=== PATIENT | male | born 1940 | race Caucasian/White ===

== ENCOUNTER 2019-10-28 10:19 | Observation (INO) ==
[2019-10-28 10:57] LABS: Basophils # 0.1 K/mm3 (0-0.2); Basophils % 0.6 % (0.1-2.0); Eosinophils # 0.2 K/mm3 (0.0-0.4); Eosinophils % 1.4 % (0.1-12.0); Hematocrit 43.9 % (42.0-52.0); Hemoglobin 14.4 g/dL (14.1-18.0); Lymphocytes # 2.3 K/mm3 (0.7-4.5); Lymphocytes % 21.5 % (10-50); Mean Corpuscular HGB Conc 32.8 g/dL (31.8-35.4); Mean Platelet Volume 7.6 fl (7.4-10.4); Monocytes % 9.9 % (1.7-9.3); Neutrophils % 66.5 % (37.0-80.0); Platelet Count 304 K/mm3 (142-424); Red Blood Count 4.99 M/mm3 (4.60-6.20); Red Cell Distribution Width 13.3 % (11.5-17.5); White Blood Count 10.5 K/mm3 (4.8-10.8)
[2019-10-28 11:05] LABS: Albumin Level 3.8 gm/dL (3.4-5.0); Anion Gap 14.5 mEq/L (5-15); Bilirubin,Total 0.8 mg/dL (0.2-1.0); Calcium 9.2 mg/dL (8.5-10.1); Globulin 3.8 gm/dl (1.3-3.2); Total Protein,Serum 7.6 gm/dL (6.4-8.2)
--- NOTE | 2019-10-28 11:19 | Emergency Department Note ---
ED Disposition Clinical Impression: Renal calculi, Obstructive uropathy, Ureteral stone with hydronephrosis Disposition: Admitted as Observation Condition on Discharge: Fair Time of Disposition: 19:00 - Critical Care Critical Care Time: No Attestation: On 10/28/19, the high probability of a clinically significant, sudden or life threatening deterioration of the following system(s) required my full and direct attention, intervention and personal management. The time I documented below is in addition to time spent performing reported procedures but includes the following listed in this critical care notation. Medical Decision Making - Raman Inquiry Pt receiving controlled substance: No Vital Signs: 10/28/19 10:20 10/28/19 11:20 10/28/19 14:18 Temperature 98 F 97.9 F 98.1 F Temperature Source Oral Oral Pulse Rate 70 Pulse Rate [Right] 79 72 Respiratory Rate 18 18 20 Blood Pressure 114/78 Blood Pressure [Right Arm] 133/79 112/75 Blood Pressure Mean [Right Arm] 97 87 Blood Pressure Source [Right Arm] Automatic Cuff Blood Pressure Position [Right Arm] Sitting 02 Sat by Pulse Oximetry 96 96 Oxygen Delivery Method Room Air 10/28/19 14:37 Temperature 98.0 F Temperature Source Oral Pulse Rate Pulse Rate [Right] 60 Respiratory Rate 18 Blood Pressure Blood Pressure [Right Arm] 120/78 Blood Pressure Mean [Right Arm] 92 Blood Pressure Source [Right Arm] Automatic Cuff Blood Pressure Position [Right Arm] Sitting 02 Sat by Pulse Oximetry 90 L Oxygen Delivery Method Room Air - Lab Data Lab results reviewed: Yes: I reviewed the patient's lab results. Lab Results 10/28/19 10:53: WBC 10.5, RBC 4.99, Hgb 14.4, Hct 43.9, MCV 88.0, MCH 28.9, MCHC 32.8, RDW 13.3, Plt Count 304, MPV 7.6, Neut % (Auto) 66.5, Lymph % (Auto) 21.5, [place] % (Auto) 9.9 H, Eos % (Auto) 1.4, Baso % (Auto) 0.6, Neut # (Auto) 7.0, Lymph # (Auto) 2.3, [place] # (Auto) 1.0, Eos # (Auto) 0.2, Baso # (Auto) 0.1 10/28/19 10:53: Sodium 143, Potassium 4.5, Chloride 104, Carbon Dioxide 29, Anion Gap 14.5, BUN 22 H, Creatinine 1.57 H, Estimated Creat Clear 51, Estimated GFR 43 L, Est GFR ( Amer) 52 L, Glucose 100, Calcium 9.2, Total Bilirubin 0.8, AST 22, ALT 24, Alkaline Phosphatase 97, Total Protein 7.6, Albumin 3.8, Globulin 3.8 H, Albumin/Globulin Ratio 1.0 L, Amylase 57 10/28/19 10:53: Lipase 128 10/28/19 10:53: Troponin I < 0.02 10/28/19 13:00: Urine Color Yellow, Urine Appearance Clear, Urine pH 7.0, Ur Specific [place] 1.015, Urine Protein Negative, Urine Glucose (UA) Negative, Urine Ketones Negative, Urine Blood 3+, Urine Nitrate Negative, Urine Bilirubin Negative, Urine Urobilinogen 0.2, Ur Leukocyte Esterase Trace, Urine RBC 10-20, Urine WBC 5-10, Ur Squamous Epith Cells 5-10, Urine Bacteria None Result diagrams: 10/29/19 05:35 10/29/19 05:35 Orders (Tests/Meds): ED MEDICATIONS Discontinued Medications Generic Name Dose Route Start Last Admin Trade Name Freq PRN Reason Stop Dose Admin Acetaminophen 650 mg 10/28/19 15:00 Acetaminophen 325mg Tab PO 11/27/19 14:59 Q4HP PRN As Needed for Fever or Pain Hydrocodone Bitart/Acetaminophen 1 - 2 tab 10/28/19 15:00 Cascade 5/325mg Tablet PO 11/27/19 14:59 Q4HP PRN Mild to Moderate Pain Aspirin 81 mg 10/29/19 09:00 Aspirin 81mg Enteric Coated Tablet PO 11/28/19 08:59 DAILY SHANTANU Atorvastatin Calcium 20 mg 10/28/19 21:00 10/28/19 20:14 Lipitor 20mg Tablet PO 11/27/19 20:59 20 mg HS SHANTANU Administration Atorvastatin Calcium 40 mg 10/29/19 21:00 Lipitor 40mg Tablet PO 11/28/19 20:59 HS SHANTANU Hydromorphone HCl 2 mg 10/28/19 12:43 10/28/19 12:53 Dilaudid 4mg/Ml Syringe IV 10/28/19 12:44 2 mg ONCE ONE Administration Hydromorphone HCl 1 mg 10/29/19 08:00 Dilaudid 2mg/Ml Syringe IV 11/28/19 07:59 Q3H PRN Breakthru Severe Pain Hydromorphone HCl 0.5 mg 10/29/19 10:23 Dilaudid 2mg/Ml Syringe IV 10/29/19 12:23 Q5MINP PRN Moderate to Severe Pain Sodium Chloride 1,000 mls @ 999 mls/hr 10/28/19 11:00 10/28/19 10:57 Sod Chlor 0.9% 1000ml Bag IV 10/28/19 12:00 999 mls/hr .Q1H1M SHANTANU Administration Lactated Ringer's 1,000 mls @ 75 mls/hr 10/29/19 08:30 Lactated Ringer's 1000 Ml Bag IV 11/28/19 08:29 .[id number] SHANTANU Cefazolin Sodium 2 gm/ Sodium 100 mls @ 200 mls/hr 10/29/19 09:50 10/29/19 10:02 Chloride IV 10/29/19 10:19 200 mls/hr PREOP ONE Administration Sodium Chloride 3,000 mls @ 999 mls/hr 10/29/19 10:10 10/29/19 10:10 Sodium Chloride 0.9% Irrigation 3,000ml Bag IR 10/29/19 13:10 999 mls/hr ONCE ONE Administration Ioversol 75 ml 10/28/19 12:00 10/28/19 12:01 Rad-Optiray 350 100ml Vial IV 10/28/19 12:01 75 ml ONCE ONE Administration Protocol Ketorolac Tromethamine 15 mg 10/28/19 12:43 10/28/19 12:53 Toradol 60mg/2ml Vial IV 10/28/19 12:44 15 mg ONCE ONE Administration Lidocaine HCl 10 ml 10/29/19 10:15 10/29/19 10:06 Urojet Lidocaine 2% 10ml UR 10/29/19 10:16 10 ml ONCE ONE Administration Meperidine HCl 12.5 mg 10/29/19 10:23 Meperidine 25mg/Ml 1ml Syringe IV 10/29/19 12:23 Q5MINP PRN Shivering Meperidine HCl 25 mg 10/29/19 10:23 Meperidine 25mg/Ml 1ml Syringe IV 10/29/19 12:23 Q5MINP PRN Shivering Morphine Sulfate 2 mg 10/29/19 10:23 Morphine 2mg/Ml Syringe IV 10/29/19 12:23 Q5MINP PRN Severe Pain Ondansetron HCl 4 mg 10/28/19 12:52 10/28/19 12:52 Zofran 4mg/2ml Vial IV 10/28/19 12:53 4 mg ONCE ONE Administration Ondansetron HCl 4 mg 10/29/19 10:23 Zofran 4mg/2ml Vial IV 10/29/19 12:23 Q6HP PRN Nausea Promethazine HCl 6.25 mg 10/29/19 10:23 Phenergan 25mg/Ml 1ml Vial IV 10/29/19 12:23 [id number] PRN Nausea And Vomiting Sodium Chloride 10 ml 10/28/19 12:00 10/28/19 12:01 Rad-Saline Flush 10ml Syringe IV 10/28/19 12:01 10 ml ONCE ONE Administration Sodium Chloride 10 ml 10/29/19 07:45 Saline Flush 10ml Syringe IV 11/28/19 07:44 NEEDED PRN Maintain IV Site Sodium Chloride 25 ml 10/29/19 10:23 Sod Chlor 0.9% 25ml Bag IV 10/29/19 12:23 NEEDED PRN for Use with IV Promethazine Tamsulosin HCl 0.4 mg 10/28/19 21:00 Flomax 0.4mg Capsule PO 11/27/19 20:59 HS SHANTANU Tamsulosin HCl 0.4 mg 10/28/19 13:07 10/28/19 13:07 Flomax 0.4mg Capsule PO 10/28/19 13:08 0.4 mg HS ONE Administration Tamsulosin HCl 0.4 mg 10/28/19 21:00 10/29/19 09:15 Flomax 0.4mg Capsule PO 11/27/19 20:59 0.4 mg BID SHANTANU Administration Tramadol HCl 50 mg 10/28/19 15:00 10/29/19 16:21 Ultram 50mg Tablet PO 11/27/19 14:59 Not Given Q6H SHANTANU ORDERS Category Date Time Status CT abdomen pelvis w con Stat Cat Scan 10/28/19 10:40 Taken ECG Request by /Nse Stat Y 10/28/19 11:20 Stop Req - Physician Consults Physician Consulted: Dr. Maier Reason -: Pt condition Comment/Response: Discussed with Dr. Maier, the urologist regarding the patient and plan to get the patient admitted under the hospitalist service for cystoscopy and further removal of the renal stone. Additional Consult: Dr. Capone Reason -: Admission Comment/Response: Discussed with Dr. Capone regarding the patient and plan to get the patient admitted under his service for ureteric stone with hydronep hrosis and obstructive uropathy for cystoscopy and stone removal. - Reevaluation(s) Reevaluation #1: Patient has been feeling better after the pain medications. She states she still feels the pain when she moves. I discussed the lab values and the CT scan finding with the patient. Considering the size of the stone patient may have to admitted for cystoscopy and removal of the kidney stone. Plan to discuss the case with the urologist for further management modalities. Abdominal Pain HPI - General Chief Complaint: Abdominal Pain Stated Complaint: Abd Pain Time Seen by Provider: 10/28/19 10:57 Mode of Arrival: Ambulatory Source of Information: Patient Limitations: No Limitations Description of Symptoms (Recalled from ER Triage Doc. by RN): Pt c/o left sided abd pain since yesterday, pt had one episode of vomiting, denies diarrhea or fever. - History of Present Illness MD complaint: abdominal pain, flank pain Onset (ago): day(s) (1) Consistency: intermittent Location: LUQ, LLQ Severity: moderate Severity scale (1-10): 6 Quality: cramping, sharp Radiation: LLQ Migration to: no migration Relieving factors: nothing Exacerbating factors: nothing Associated symptoms: nausea, vomiting (Had vomited once) - Related Data Home Medications Medication Instructions Recorded Confirmed Aspirin [Low Dose Aspirin EC] 81 mg PO DAILY 10/28/19 10/28/19 Atorvastatin Calcium [Atorvastatin 20 mg PO HS 10/28/19 10/28/19 20mg Tab] Allergies Allergy/AdvReac Type Severity Reaction Status Date / Time No Known Allergies Allergy Verified 10/28/19 10:39 [facility] History - Hepatitis A Screen Drug use history?: No High risk sexual behaviors?: No History of sexually transmitted infection?: No Currently employed?: No Childcare worker?: No Do you have indoor plumbing?: Yes Do you have electricity?: Yes Attestation statement:: This patient has been screened for Hepatitis A risk factors. I have reviewed the patient's past medical history: Yes Laterality Cases: Right: Total Knee Replacement - Social History Alcohol Intake: never Occupational Status: retired ROS Obtained: Yes All systems reviewed & no additional complaints Physical Exam - General General appearance: alert, in no apparent distress - Head Head exam: atraumatic, normocephalic, normal inspection - Eye Eye exam: Present: normal appearance, PERRL, EOMI - ENT ENT exam: Present: normal exam, normal oropharynx, mucous membranes moist, TM's normal bilaterally, normal external ear exam - Neck Neck exam: Present: normal inspection, full ROM, trachea midline - Chest Chest inspection: Present: normal inspection, symmetric chest wall rise. Absent: tenderness - Respiratory Respiratory exam: Present: normal lung sounds bilaterally. Absent: respiratory distress - Cardiovascular Cardiovascular exam: Present: regular rate, normal rhythm. Absent: JVD - Abdominal Exam Abdominal exam: Present: soft, tenderness (Mild discomfort and tenderness on the left flank and the left lower quadrant area.), normal bowel sounds. Absent: distention, guarding - Extremities Exam Extremities exam: Present: normal inspection, full ROM, normal capillary refill - Back Exam Back exam: Present: normal inspection. Absent: tenderness - Neurological Exam Neurological exam: Present: alert, oriented X3, CN II-XII intact, normal gait - Psychiatric Psychiatric exam: Present: normal affect, normal mood - Skin Skin exam: Present: warm, dry, intact, normal color
[2019-10-28 13:06] LABS: Microscopic, Urine URINE MICROSCOPIC (MICROSCOPIC)
[2019-10-28 13:08] LABS: Appearance,Urine CLEAR (Clear); Bilirubin,Urine Negative (Negative); Blood, Urine 3+ (Negative); Color,Urine YELLOW (Yellow); Glucose,Urine (UA) Negative (Negative); Ketones,Urine Negative (Negative); Leukocyte Esterase,Urine TRACE (Negative); Protein,Urine Negative (Negative); Specific Gravity, Urine 1.015 (1.005-1.030); Urobilinogen,Urine 0.2 EU/dl (0.2)
--- NOTE | 2019-10-28 19:59 | History & Physical Report ---
*Admission Date: 10/28/19 *Chief complaint: Left flank pain *History of present illness: 79-year-old white male with significant history of nephrolithiasis, who presented to the emergency department with left flank pain and decreased voiding. Denied gross hematuria. Workup in the ER revealed 8 mm obstructing stone. Admitted to hospital for IV fluids, hydration and pain control and urology consultation. Patient has had a history of cardiac disease but by his own admission has not gone to doctors very often and does not take recommended medication. Excellent functional status at home with all activities of daily living performed by himself. [facility] History I have reviewed the patient's past medical history: Yes Medical History: Reports:: Coronary Artery Disease (stents and [place] over 5 years ago) Denies:: Cancer, Diabetes Mellitus Type 1, Diabetes Mellitus Type 2, Internal Pacemaker, MRSA *Have you ever received a pneumonia vaccine?: No *Have you received a flu vaccine this season?: Yes Laterality Cases: Right: Total Knee Replacement Other Surgeries: No: Pacemaker Amputation: No Fractures: No - *Social History Educational Level: Attended Grade School Smoking Status: Never smoker Alcohol Intake: never *Occupational Status:: retired Housing: apartment Household Members: spouse *Travel in the last 8 weeks: None Family Hx:: Coronary Artery Disease Review of Systems - Review of Systems Review of systems:: pertinent systems reviewed and negative unless documented below Meds Home Medications Medication Instructions Recorded Confirmed Type Aspirin [Low Dose Aspirin EC] 81 mg PO DAILY 10/28/19 10/28/19 History Atorvastatin Calcium [Atorvastatin 20 mg PO HS 10/28/19 10/28/19 History 20mg Tab] Allergies Allergy/AdvReac Type Severity Reaction Status Date / Time No Known Allergies Allergy Verified 10/28/19 10:39 Exam Vital signs and Labs for Last 24 Hours: Temp Pulse Resp BP Pulse Ox 97.5 F L 65 18 140/83 92 L 10/28/19 16:00 10/28/19 16:00 10/28/19 16:00 10/28/19 16:00 10/28/19 16:00 Laboratory Results - last 24 hr 10/28/19 10:53: WBC 10.5, RBC 4.99, Hgb 14.4, Hct 43.9, MCV 88.0, MCH 28.9, MCHC 32.8, RDW 13.3, Plt Count 304, MPV 7.6, Neut % (Auto) 66.5, Lymph % (Auto) 21.5, [place] % (Auto) 9.9 H, Eos % (Auto) 1.4, Baso % (Auto) 0.6, Neut # (Auto) 7.0, Lymph # (Auto) 2.3, [place] # (Auto) 1.0, Eos # (Auto) 0.2, Baso # (Auto) 0.1 10/28/19 10:53: Sodium 143, Potassium 4.5, Chloride 104, Carbon Dioxide 29, Anion Gap 14.5, BUN 22 H, Creatinine 1.57 H, Estimated Creat Clear 51, Estimated GFR 43 L, Est GFR ( Amer) 52 L, Glucose 100, Calcium 9.2, Total Bilirubin 0.8, AST 22, ALT 24, Alkaline Phosphatase 97, Total Protein 7.6, Albumin 3.8, Globulin 3.8 H, Albumin/Globulin Ratio 1.0 L, Amylase 57 10/28/19 10:53: Lipase 128 10/28/19 10:53: Troponin I < 0.02 10/28/19 13:00: Urine Color Yellow, Urine Appearance Clear, Urine pH 7.0, Ur Specific [place] 1.015, Urine Protein Negative, Urine Glucose (UA) Negative, Urine Ketones Negative, Urine Blood 3+, Urine Nitrate Negative, Urine Bilirubin Negative, Urine Urobilinogen 0.2, Ur Leukocyte Esterase Trace, Urine RBC 10-20, Urine WBC 5-10, Ur Squamous Epith Cells 5-10, Urine Bacteria None 10/28/19 16:08: POC Glucose 106 I & O for Last 24 hours: Intake & Output 10/26/19 10/27/19 10/28/19 10/29/19 11:59 11:59 11:59 11:59 Intake Total 1240 / 1240 Output Total 940 / 940 Balance 300 / 300 Weight 210 lb 212 lb 4 oz - *Routine HEENT Exam Head: Present: normocephalic Eye: Present: EOMI, PERRL ENT: Present: mucous membranes moist - *Routine Neck Exam Present: supple. Absent: lymphadenopathy - *Routine Respiratory Exam Present: CTA bilaterally - *Routine Cardiovascular Exam Present: RRR - *Routine Abdominal Exam Present: soft, normoactive bowel sounds. Absent: tenderness Comments: mild left flank pain - *Routine Extremities Exam Absent: cyanosis, clubbing, edema - *Routine Skin Exam Present: warm. Absent: rash - *Routine Neurological Exam Present: alert, oriented X3 - Detailed Eye Exam Eyelids: Left normal inspection Assessment and Plan (1) Renal calculi Current visit: Yes Status: Acute Category: Medical Code(s): N20.0 - Calculus of kidney Agree with admit for pain control... urology eval in am.... patient comfortable at this point.
[2019-10-29 06:12] LABS: Anion Gap 13.6 mEq/L (5-15); Calcium 8.8 mg/dL (8.5-10.1)
[2019-10-29 06:14] LABS: Basophils # 0.1 K/mm3 (0-0.2); Basophils % 0.7 % (0.1-2.0); Eosinophils # 0.2 K/mm3 (0.0-0.4); Eosinophils % 2.2 % (0.1-12.0); Hematocrit 38.2 % (42.0-52.0); Lymphocytes # 1.9 K/mm3 (0.7-4.5); Lymphocytes % 21.3 % (10-50); Mean Corpuscular HGB Conc 32.6 g/dL (31.8-35.4); Mean Corpuscular Volume 89.2 fl (80-94); Mean Platelet Volume 7.6 fl (7.4-10.4); Monocytes # 0.8 K/mm3 (0.1-1.0); Monocytes % 8.9 % (1.7-9.3); Neutrophils # 5.8 K/mm3 (1.8-7.8); Neutrophils % 66.9 % (37.0-80.0); Platelet Count 249 K/mm3 (142-424); Red Blood Count 4.28 M/mm3 (4.60-6.20); Red Cell Distribution Width 13.3 % (11.5-17.5); White Blood Count 8.7 K/mm3 (4.8-10.8)
[2019-10-29 06:31] LABS: Hemoglobin 12.5 g/dL (14.1-18.0)
--- NOTE | 2019-10-29 07:19 | Pharmacy Consult Notes ---
[facility] Pharmacy VTE Monitoring - Patient Demographics Admission date: 10/28/19 Report Date: 10/29/19 Time: 07:19 Allergies/Adverse Reactions: Patient Allergies No Known Allergies Allergy (Verified 10/28/19 10:39) Height: 1.83 m Weight: 86.296 kg Patient Problems: Current Active Problems Renal calculi (Acute) - VTE Risk Labs: VTE Related Lab Results Hgb 12.5 g/dL (14.1-18.0) L D 10/29/19 05:35 Hct 38.2 % (42.0-52.0) L 10/29/19 05:35 Plt Count 249 K/mm3 (142-424) 10/29/19 05:35 BUN 26 mg/dL (7-18) H 10/29/19 05:35 Creatinine 1.44 mg/dL (0.70-1.30) H 10/29/19 05:35 Estimated Creat Clear 50 mL/min (50-200) 10/29/19 05:35 Was VTE Risk Assessment Performed: Yes VTE Score: 1 VTE Risk Level: Very Low Risk - Prophylaxis VTE Prophylaxis Ordered?: Yes Types of VTE Prophylaxis: TEDS Knee High Location of Applied Device: Bilateral Lower Extremeties
--- NOTE | 2019-10-29 08:40 | Progress Note ---
Internal Medicine - PN: Subj *Date: 10/29/19 *Time: 08:39 Interval history: Patient did well overnight. No pains. No vomiting or diarrhea. Exam Vital signs and Labs for Last 24 Hours: Temp Pulse Resp BP Pulse Ox 98.6 F 78 18 140/78 93 L 10/29/19 08:00 10/29/19 08:00 10/29/19 08:00 10/29/19 08:00 10/29/19 08:00 Laboratory Results - last 24 hr 10/28/19 10:53: WBC 10.5, RBC 4.99, Hgb 14.4, Hct 43.9, MCV 88.0, MCH 28.9, MCHC 32.8, RDW 13.3, Plt Count 304, MPV 7.6, Neut % (Auto) 66.5, Lymph % (Auto) 21.5, [place] % (Auto) 9.9 H, Eos % (Auto) 1.4, Baso % (Auto) 0.6, Neut # (Auto) 7.0, Lymph # (Auto) 2.3, [place] # (Auto) 1.0, Eos # (Auto) 0.2, Baso # (Auto) 0.1 10/28/19 10:53: Sodium 143, Potassium 4.5, Chloride 104, Carbon Dioxide 29, Anion Gap 14.5, BUN 22 H, Creatinine 1.57 H, Estimated Creat Clear 51, Estimated GFR 43 L, Est GFR ( Amer) 52 L, Glucose 100, Calcium 9.2, Total Bilirubin 0.8, AST 22, ALT 24, Alkaline Phosphatase 97, Total Protein 7.6, Albumin 3.8, Globulin 3.8 H, Albumin/Globulin Ratio 1.0 L, Amylase 57 10/28/19 10:53: Lipase 128 10/28/19 10:53: Troponin I < 0.02 10/28/19 13:00: Urine Color Yellow, Urine Appearance Clear, Urine pH 7.0, Ur Specific [place] 1.015, Urine Protein Negative, Urine Glucose (UA) Negative, Urine Ketones Negative, Urine Blood 3+, Urine Nitrate Negative, Urine Bilirubin Negative, Urine Urobilinogen 0.2, Ur Leukocyte Esterase Trace, Urine RBC 10-20, Urine WBC 5-10, Ur Squamous Epith Cells 5-10, Urine Bacteria None 10/28/19 16:08: POC Glucose 106 10/29/19 05:35: WBC 8.7, RBC 4.28 L, Hgb 12.5 L D, Hct 38.2 L, MCV 89.2, MCH 29.1, MCHC 32.6, RDW 13.3, Plt Count 249, MPV 7.6, Neut % (Auto) 66.9, Lymph % (Auto) 21.3, [place] % (Auto) 8.9, Eos % (Auto) 2.2, Baso % (Auto) 0.7, Neut # (Auto) 5.8, Lymph # (Auto) 1.9, [place] # (Auto) 0.8, Eos # (Auto) 0.2, Baso # (Auto) 0.1 10/29/19 05:35: Sodium 143, Potassium 4.6, Chloride 105, Carbon Dioxide 29, Anion Gap 13.6, BUN 26 H, Creatinine 1.44 H, Estimated Creat Clear 50, Estimated GFR 47 L, Est GFR ( Amer) 57 L, Glucose 100, Calcium 8.8 I & O for Last 24 hours: Intake & Output 10/26/19 10/27/19 10/28/19 10/29/19 11:59 11:59 11:59 11:59 Intake Total 1360 / 1360 Output Total 940 / 940 Balance 420 / 420 Weight 210 lb 190 lb 4 oz Narrative: Patient is pleasant, alert. Oriented x3. Lungs are clear, heart rate regular. Oropharynx clear. Neurologically intact. Abdomen is soft with no pain or guarding in the flank or left lower quadrant. Assessment and Plan (1) Renal calculi Current visit: Yes Status: Acute Category: Medical Code(s): N20.0 - Calculus of kidney - Assessment and plan all Dx Assessment and Plan for all problems:: Urology consultation and probable cystoscopy today. Probable discharge home pending results of stone treatment
--- NOTE | 2019-10-29 10:21 | Progress Note ---
[facility] Anesthesia Checklist - Patient Identification Patient Identification: Arm Band - Structural Data Admitted From: Home Planned Operative Procedure/s: cystoscopy with left ureteral stent placement Consent for Planned Operative Procedure(s) Verified: Yes Verified Documents: Surgical Consent, History and Physical - NPO Status Verified Time NPO: 00:00 - Additional verifications Anesthesia Reactions: No - Airway Assessment C-Spine Mobility Assessed: Yes (mp2) TMJ Mobility Assessed: Yes Dentition: Edentulous - Neurological Assessment Level of Consciousness: Awake, Alert - Anesthesia Plan Anesthesia Risk discussed: Yes Anesthesia Plan: Verified ASA Class: III Anesthesia Type: General [facility] History I have reviewed the patient's past medical history: Yes Medical History: Reports:: Coronary Artery Disease (stents and [place] over 5 years ago), Hyperlipidemia, Lung Disease ("black lung disease") Denies:: Cancer, Diabetes Mellitus Type 1, Diabetes Mellitus Type 2, Internal Pacemaker, MRSA *Have you ever received a pneumonia vaccine?: No *Have you received a flu vaccine this season?: Yes Anesthesia experience/problems:: nac Laterality Cases: Right: Total Knee Replacement Other Surgeries: Yes: Cholecystectomy, Hernia Repair, Other. No: Pacemaker Amputation: No Fractures: No - *Social History Educational Level: Attended Grade School Smoking Status: Never smoker Alcohol Intake: never Substance Use Type: denies use *Occupational Status:: retired Housing: apartment Household Members: spouse *Travel in the last 8 weeks: None Family Hx:: Coronary Artery Disease
--- NOTE | 2019-10-29 10:22 | Progress Note ---
[facility] Anesthesia Record Part I Intake, IV Amount: 400 Estimated blood loss (mL): 0 Urine output (mL): 0 Blood Pressure: 96/66 SaO2: 95 Pulse Rate: 74 Respiratory Rate: 16 Temperature: 98.4 F Patient is:: Drowsy, Stable Stable to PACU at:: 10:15
--- NOTE | 2019-10-29 10:48 | Progress Note ---
[facility] Anesthesia Record Part II Discharge Time: 10:43 Destination: Medical Surgical Department PACU nurse assessment reviewed?: Yes Patient Condition:: Good Anesthesia Complications:: None Swallowing reflex intact?: Yes Cyanosis?: No Blood Pressure: 109/66 Pulse Rate: 73 Temperature: 97.6 F Mental Status: Alert & Oriented Pain level:: 0 Nausea and/or vomitting:: None Intake, IV Amount: 0
--- NOTE | 2019-10-29 10:49 | Consult Report ---
*Admission Date: 10/28/19 *Reason for consult:: Left ureteral stone *History of present illness: Patient is a 79-year-old white male with a history of nephrolithiasis. He presented to emergency room yesterday with left flank pain. CT scan shows an 8 mm proximal ureteral stone on the left side with hydronephrosis. White count is normal. Creatinine is 1.4. There is also a 6 mm nonobstructing stone in the right upper pole. Patient was admitted for pain control and stent placement. Patient did well overnight with minimal discomfort. His scan was reviewed and his white count remains normal this morning. He denies any fever or gross hematuria. His last stone episode was 2 years ago by report. He has required ESWL in the past. [facility] History Medical History: Reports:: Coronary Artery Disease (stents and NM over 5 years ago), Hyperlipidemia, Lung Disease ("black lung disease") Denies:: Cancer, Diabetes Mellitus Type 1, Diabetes Mellitus Type 2, Internal Pacemaker, MRSA *Have you ever received a pneumonia vaccine?: No *Have you received a flu vaccine this season?: Yes Anesthesia experience/problems:: nac Laterality Cases: Right: Total Knee Replacement Other Surgeries: Yes: Cholecystectomy, Hernia Repair, Other. No: Pacemaker Amputation: No Fractures: No - *Social History Educational Level: Attended Grade School Smoking Status: Never smoker Alcohol Intake: never Substance Use Type: denies use *Occupational Status:: retired Housing: apartment Household Members: spouse *Travel in the last 8 weeks: None Family Hx:: Coronary Artery Disease Review of Systems - Review of Systems Review of systems:: pertinent systems reviewed and negative unless documented below Meds Home Medications Medication Instructions Recorded Confirmed Type Aspirin [Low Dose Aspirin EC] 81 mg PO DAILY 10/28/19 10/28/19 History Atorvastatin Calcium [Atorvastatin 20 mg PO HS 10/28/19 10/28/19 History 20mg Tab] Allergies Allergy/AdvReac Type Severity Reaction Status Date / Time No Known Allergies Allergy Verified 10/28/19 10:39 Exam Vital signs and Labs for Last 24 Hours: Temp Pulse Resp BP Pulse Ox 97.6 F 73 16 109/66 L 94 L 10/29/19 10:43 10/29/19 10:43 10/29/19 10:43 10/29/19 10:43 10/29/19 10:43 Laboratory Results - last 24 hr 10/28/19 10:53: WBC 10.5, RBC 4.99, Hgb 14.4, Hct 43.9, MCV 88.0, MCH 28.9, MCHC 32.8, RDW 13.3, Plt Count 304, MPV 7.6, Neut % (Auto) 66.5, Lymph % (Auto) 21.5, [place] % (Auto) 9.9 H, Eos % (Auto) 1.4, Baso % (Auto) 0.6, Neut # (Auto) 7.0, L ymph # (Auto) 2.3, [place] # (Auto) 1.0, Eos # (Auto) 0.2, Baso # (Auto) 0.1 10/28/19 10:53: Sodium 143, Potassium 4.5, Chloride 104, Carbon Dioxide 29, Anion Gap 14.5, BUN 22 H, Creatinine 1.57 H, Estimated Creat Clear 51, Estimated GFR 43 L, Est GFR ( Amer) 52 L, Glucose 100, Calcium 9.2, Total Bilirubin 0.8, AST 22, ALT 24, Alkaline Phosphatase 97, Total Protein 7.6, Albumin 3.8, Globulin 3.8 H, Albumin/Globulin Ratio 1.0 L, Amylase 57 10/28/19 10:53: Lipase 128 10/28/19 10:53: Troponin I < 0.02 10/28/19 13:00: Urine Color Yellow, Urine Appearance Clear, Urine pH 7.0, Ur Specific [place] 1.015, Urine Protein Negative, Urine Glucose (UA) Negative, Urine Ketones Negative, Urine Blood 3+, Urine Nitrate Negative, Urine Bilirubin Negative, Urine Urobilinogen 0.2, Ur Leukocyte Esterase Trace, Urine RBC 10-20, Urine WBC 5-10, Ur Squamous Epith Cells 5-10, Urine Bacteria None 10/28/19 16:08: POC Glucose 106 10/29/19 05:35: WBC 8.7, RBC 4.28 L, Hgb 12.5 L D, Hct 38.2 L, MCV 89.2, MCH 29.1, MCHC 32.6, RDW 13.3, Plt Count 249, MPV 7.6, Neut % (Auto) 66.9, Lymph % (Auto) 21.3, [place] % (Auto) 8.9, Eos % (Auto) 2.2, Baso % (Auto) 0.7, Neut # (Auto) 5.8, Lymph # (Auto) 1.9, [place] # (Auto) 0.8, Eos # (Auto) 0.2, Baso # (Auto) 0.1 10/29/19 05:35: Sodium 143, Potassium 4.6, Chloride 105, Carbon Dioxide 29, Anion Gap 13.6, BUN 26 H, Creatinine 1.44 H, Estimated Creat Clear 50, Estimated GFR 47 L, Est GFR ( Amer) 57 L, Glucose 100, Calcium 8.8 I & O for Last 24 hours: Intake & Output 10/26/19 10/27/19 10/28/19 10/29/19 23:59 23:59 23:59 23:59 Intake Total 1360 / 1360 400 / 400 Output Total 940 / 940 250 / 250 Balance 420 / 420 150 / 150 Weight 96.275 kg 86.296 kg Narrative: Well-nourished white male in no apparent distress Pupils equal round reactive to light Head is normocephalic Neck is symmetric Abdomen normal to visual inspection Normal respiratory effort Alert and oriented x3 Internal Medicine - CN: Reslt - Labs CBC & Chem 7: 10/29/19 05:35 10/29/19 05:35 Labs: Short CBC 10/28/19 10/29/19 Range/Units 10:53 05:35 WBC 10.5 8.7 (4.8-10.8) K/mm3 Hgb 14.4 12.5 L D (14.1-18.0) g/dL Hct 43.9 38.2 L (42.0-52.0) % Plt Count 304 249 (142-424) K/mm3 BMP 10/28/19 10/29/19 10:53 05:35 Sodium 143 143 Potassium 4.5 4.6 Chloride 104 105 Carbon Dioxide 29 29 BUN 22 H 26 H Creatinine 1.57 H 1.44 H Glucose 100 100 Calcium 9.2 8.8 Cardiac Enzymes 10/28/19 Range/Units 10:53 Troponin I < 0.02 (0.00-0.06) ng/ml Liver Function 10/28/19 Range/Units 10:53 Total Bilirubin 0.8 (0.2-1.0) mg/dL AST 22 (15-37) U/L ALT 24 (12-78) U/L Alkaline Phosphatase 97 (46-116) U/L Albumin 3.8 (3.4-5.0) gm/dL Urine 10/28/19 Range/Units 13:00 Urine Color Yellow (Yellow) Urine Appearance Clear (Clear) Urine pH 7.0 (5.0-8.5) Ur Specific [place] 1.015 (1.005-1.030) Urine Protein Negative (Negative) Urine Glucose (UA) Negative (Negative) Assessment and Plan (1) Renal calculi Current visit: Yes Status: Acute Category: Medical Code(s): N20.0 - Calculus of kidney - Assessment and plan all Dx Assessment and Plan for all problems:: 79-year-old white male with history of nephrolithiasis now with a 8 mm left proximal ureteral stone with obstruction. We discussed treatment options and a left ureteral stent with possible stone manipulation was advised. We also d iscussed the nonobstructing stone on the right side. Plan is to push the stone back up in his left kidney and place a stent. We then discussed lithotripsy of both stones at a later visit.
--- NOTE | 2019-10-29 10:54 | Operative Note ---
Date of procedure: 10/29/19 Pre-op Diagnosis:: 8 mm left proximal ureteral stone Post-op Diagnosis:: Same Procedure performed:: Cystoscopy with stone manipulation and left stent placement Surgeon:: Hira Maier MD SURVEY RESEARCHER:: Andrez Garcia Anesthesia: GETA Estimated blood loss (mL): 0 Clinical Note:: 79-year-old white male with left flank pain due to left ureteral stone Operative findings:: 8 mm left proximal ureteral stone Operative note:: Patient taken to the operating room after informed consent was obtained. Placed on the operating table in the supine position and general anesthesia administered. Preoperative antibiotics administered. He was then placed into the dorsal lithotomy position and prepped and draped in the standard surgical fashion. The urethral meatus was on the ventral aspect of the glans. It appeared to be a little stenotic and was dilated to 24 Mauritanian with Jenny sounds without difficulty. The 22 Mauritanian cystoscope then passed into the urethral meatus and the prostate. There was a high bladder neck which we were able to negotiate without difficulty. Prostate was enlarged. The bladder was examined in a systematic fashion and no mucosal abnormalities were noted. No significant trabeculation or cellule formation was noted. The ureteral orifices were in their normal anatomic position. A 5 Mauritanian ureteral catheter passed into the left ureteral orifice and up to the 8 mm stone. The stone was manipulated back into the renal pelvis without difficulty. A 0.035 guidewire then passed through the ureteral catheter and into the renal pelvis. Ureteral catheter was removed and a 6 x 26 Mauritanian stent was then passed over the guidewire and the guidewire removed under fluoroscopy. A good curl was noted proximally and distally on the stent. The string was removed. Bladder drained and the scope removed. Urojet placed into the urethra for comfort. Patient tolerated the procedure well there were no complications. Of note there is no evidence of any signs of infection coming from the renal pelvic fluid once the stent has been placed. Patient transported to the recovery room in stable condition. Condition: stable Disposition: PACU Specimens:: None Complications:: None
--- NOTE | 2019-10-29 15:18 | Discharge Summary ---
General - General Admission date:: 10/28/19 Discharge date: 10/29/19 HPI HPI: 79-year-old white male with significant history of nephrolithiasis, who presented to the emergency department with left flank pain and decreased voiding. Denied gross hematuria. Workup in the ER revealed 8 mm obstructing stone. Admitted to hospital for IV fluids, hydration and pain control and urology consultation. Patient has had a history of cardiac disease but by his own admission has not gone to doctors very often and does not take recommended medication. Excellent functional status at home with all activities of daily living performed by himself. Hospital Course Hospital Course: Admitted... pain control acheived... Urology consult done and appreciated.. procedure below Patient taken to the operating room after informed consent was obtained. Placed on the operating table in the supine position and general anesthesia administered. Preoperative antibiotics administered. He was then placed into the dorsal lithotomy position and prepped and draped in the standard surgical fashion. The urethral meatus was on the ventral aspect of the glans. It appeared to be a little stenotic and was dilated to 24 Ghanaian with Jenny sounds without difficulty. The 22 Ghanaian cystoscope then passed into the urethral meatus and the prostate. There was a high bladder neck which we were a ble to negotiate without difficulty. Prostate was enlarged. The bladder was examined in a systematic fashion and no mucosal abnormalities were noted. No significant trabeculation or cellule formation was noted. The ureteral orifices were in their normal anatomic position. A 5 Ghanaian ureteral catheter passed into the left ureteral orifice and up to the 8 mm stone. The stone was manipulated back into the renal pelvis without difficulty. A 0.035 guidewire then passed through the ureteral catheter and into the renal pelvis. Ureteral catheter was removed and a 6 x 26 Ghanaian stent was then passed over the guidewire and the guidewire removed under fluoroscopy. A good curl was noted proximally and distally on the stent. The string was removed. Bladder drained and the scope removed. Urojet placed into the urethra for comfort. Patient tolerated the procedure well there were no complications. Of note there is no evidence of any signs of infection coming from the renal pelvic fluid once the stent has been placed. Patient transported to the recovery room in stable condition. Patient will be d/cd wtih abx as noted - with urology f/u and with us in clinic. Objective Vital signs: Temp Pulse Resp BP Pulse Ox 98.1 F 82 17 96/67 L 93 L 10/29/19 13:35 10/29/19 13:35 10/29/19 13:35 10/29/19 13:35 10/29/19 13:35 no acute distress - *Routine HEENT Exam Head: Present: normocephalic Eye: Present: EOMI, PERRL - *Routine Neck Exam Present: supple, full ROM - *Routine Respiratory Exam Present: accessory muscle use - *Routine Cardiovascular Exam Present: RRR, Normal S1 - *Routine Abdominal Exam Present: soft, normoactive bowel sounds - *Routine Extremities Exam Absent: cyanosis, clubbing, edema - Detailed Eye Exam Eyelids: Left normal inspection Results Labs on day of discharge: Labs from last 24 hours 10/29/19 10/29/19 10/28/19 05:35 05:35 16:08 WBC 8.7 RBC 4.28 L Hgb 12.5 L D Hct 38.2 L MCV 89.2 MCH 29.1 MCHC 32.6 RDW 13.3 Plt Count 249 MPV 7.6 Neut % (Auto) 66.9 Lymph % (Auto) 21.3 [place] % (Auto) 8.9 Eos % (Auto) 2.2 Baso % (Auto) 0.7 Neut # (Auto) 5.8 Lymph # (Auto) 1.9 [place] # (Auto) 0.8 Eos # (Auto) 0.2 Baso # (Auto) 0.1 Sodium 143 Potassium 4.6 Chloride 105 Carbon Dioxide 29 Anion Gap 13.6 BUN 26 H Creatinine 1.44 H Estimated Creat Clear 50 Estimated GFR 47 L Est GFR ( Amer) 57 L Glucose 100 POC Glucose 106 Calcium 8.8 DS: Diagnosis - Discharge Diagnosis (1) Renal calculi Status: Resolved Discharge Plan - Patient Discharge Instructions ACTIVITY: Continue current activity DIET: continue same diet Patient Instructions: DI for Kidney Stones, DI for Cystoscopy - Follow up Plan Follow up with: Hira Maier MD [Staff Physician] - (surgery scheduled thursday 11/02 at 2:00. check in time at [facility] is at 11:30. nothing to eat or drink after midnight 11/01. ) Cony Palmer APRN [Nurse Practitioner] - 11/01/19 Disposition: Home, Self-Jail Medications: Home Medications Medication Instructions Recorded Confirmed Type Aspirin [Low Dose Aspirin EC] 81 mg PO DAILY 10/28/19 10/28/19 History Atorvastatin Calcium [Atorvastatin 20 mg PO HS 10/28/19 10/28/19 History 20mg Tab] Prescriptions/Medication Reconciliation: Continued Atorvastatin Calcium [Atorvastatin 20mg Tab] 20 mg PO HS Aspirin [Low Dose Aspirin EC] 81 mg PO DAILY - Problem Reconciliation Problems Reviewed?: Yes
== END 2019-10-29 16:35 | disposition home or self-care (01) ==
LOC: 2ND 10:19 → ER 10:19 → 2ND 14:39
PROVIDERS: ADMIT Internal Medicine Adolescent Medicine; ATTEND Internal Medicine Adolescent Medicine
DX: J60 Coalworker's pneumoconiosis; Z95.818 Presence of other cardiac implants and grafts; Z87.442 Personal history of urinary calculi; Z79.899 Other long term (current) drug therapy; N20.0 Calculus of kidney; Z96.651 Presence of right artificial knee joint; Z90.49 Acquired absence of other specified parts of digestive tract; N40.0 Benign prostatic hyperplasia without lower urinary tract symptoms; E78.5 Hyperlipidemia, unspecified; N21.1 Calculus in urethra; N35.811 Other urethral stricture, male, meatal; Z79.82 Long term (current) use of aspirin; I25.10 Atherosclerotic heart disease of native coronary artery without angina pectoris
CPT/HCPCS: 36415; 74177; 76000; 80048; 80053; 81001; 82150; 82962; 83690; 84484; 85025; 96365; 96375; 99284; C2617; G0378; J2405; Q9967

== ENCOUNTER → 2019-11-09 10:27 | Outpatient (CLI) | payer MEDICARE, MEDICAID, SELFPAY ==
--- NOTE | 2019-11-09 10:32 | XR_ITS ---
PROCEDURE: XR KUB CLINICAL INDICATION: kidney stone COMPARISON: No exams were available for comparison FINDINGS: There is a double pigtail left urinary stent in place with the proximal portion within the left renal pelvis and distal portion within the urinary bladder. There are multiple calcifications projecting over the lower pole of the left kidney largest approximately 8 millimeters and there are several calcifications largest approximately 3 millimeters projecting along the proximal portion of the left ureter medial to the stent. Intraureteral stones are not excluded. There are 2 hyperdensities projecting over the lower pole of the right kidney largest 3 millimeters. These could represent calculi or bowel content. A 3 millimeter calcification projects over the right psoas muscle at the L3 level. This could represent an intra ureteral stone. Clinical correlation is recommended. Gas pattern-The bowel gas pattern is unremarkable. No obvious obstruction. Degenerative changes are seen in the spine. Postsurgical clips from cholecystectomy are noted. Calcified splenic granulomas are noted. IMPRESSION: Double pigtail left urinary stent in place. Left nephrolithiasis is apparent. There are probable calculi in the proximal left ureter adjacent to the stent Possible right nephrolithiasis and right intraureteral calculus. Dictated by: Ventura Noel 11/09/2019 13:00 Electronically signed by Ventura Noel in [place] 11/09/2019 13:00
== END ==
PROVIDERS: PCP Family Medicine; Visit Provider Urology
DX: N20.0 Calculus of kidney (principal)
CPT/HCPCS: 74018

== ENCOUNTER → 2019-12-31 10:48 | Outpatient (CLI) | payer MEDICARE, MEDICAID, SELFPAY ==
--- NOTE | 2019-12-31 10:52 | XR_ITS ---
PROCEDURE: XR KUB CLINICAL INDICATION: kidney stone Follow-up kidney stone COMPARISON: CT ABDOMEN PELVIS W CON from 10/28/2019 XR KUB from 11/09/2019 FINDINGS: The left ureteral stent has been removed. Scattered small stones are present in the left kidney. There is a rounded opacity to the left the L2 transverse process at 6 mm and may represent a stone. Multiple small right renal calculi are also noted. IMPRESSION: Bilateral nephrolithiasis. Interval removal of the left ureteral stent. A 6 mm density is present to the left of the L2 transverse process and may be due to stone in the renal pelvis or at the UPJ Dictated by: Nik Teran MD 12/31/2019 14:50 Electronically signed by Nik Teran MD in [place] 12/31/2019 14:50
== END ==
PROVIDERS: PCP Family Medicine; Visit Provider Urology
DX: N20.0 Calculus of kidney (principal)
CPT/HCPCS: 74018

== ENCOUNTER → 2020-05-11 15:47 | Outpatient (CLI) | payer MEDICARE, MEDICAID, SELFPAY ==
[2020-05-13 15:57] LABS: Covid-19 Nasal PCR Sendout Lex POSITIVE
--- NOTE | 2020-05-13 16:11 | PC.NURSE ---
PATIENT MADE AWARE OF POSITIVE COVID-19 TEST AT THIS TIME.
== END ==
PROVIDERS: PCP Family Medicine; Visit Provider Nurse Practitioner
DX: Z20.828 Contact with and (suspected) exposure to other viral communicable diseases (principal); U07.1 COVID-19
CPT/HCPCS: U0004